=== PATIENT | female | born 1955 | race Caucasian/White ===

== ENCOUNTER 2017-02-28 21:44 | Inpatient (IN) | payer BC ==
[~2017-02-28] VITALS: Ht 160 cm; Wt 105.0 kg
[~2017-02-28 21:44] MED LIST: CYANOCOBALAM1000 MCG PO; EXCEDRIN MIGRA1 EAC3 PO; GLUCOSAMINE &1 EAC1 PO; PROTONIX40 MG PO; RANITIDINE HCL300 MG PO; TYLENOL EXTRA500 MG PO; VITAMIN D31000 UNIT PO; WELLBUTRIN100 MG PO; WOMEN'S 50 PLU1 EACH PO
[2017-03-01 09:28] VITALS: BP 131/75
[2017-03-01 10:17] LABS: POINT-OF-CARE METER ID UU14174212
[2017-03-01] MEDS ORDERED: XYLOCAINE VISC100 ML PO (11:10)
[2017-03-01 13:30] VITALS: BP 150/74
[2017-03-01 14:04] LABS: POINT-OF-CARE METER ID UU14162508
[2017-03-01 15:55] VITALS: BP 150/85
[2017-03-01 17:26] LABS: POINT-OF-CARE METER ID UU14162508
[2017-03-01 18:55] VITALS: BP 139/89
[2017-03-01 23:13] VITALS: BP 134/75
[2017-03-02 00:06] LABS: POINT-OF-CARE METER ID UU14314084
[2017-03-02 03:30] VITALS: BP 128/81
[2017-03-02 05:50] LABS: MCH 30.5 PG (29.0-34.0); MCHC 32.4 G/DL (30.0-36.0); MCV 94.1 FL (83-99); MEAN PLAT.VOLUME 11.1 uM^3 (9.5-12.4); PLATELET COUNT 265 K/uL (156-360); RBC DIS.WIDTH-CV 12.2 % (11.8-14.6); RBC DIS.WIDTH-SD 42.8 % (39-53); RED BLOOD COUNT 3.93 M/uL (3.80-5.20); WHITE BLOOD COUNT 9.2 K/uL (4.1-10.2)
[2017-03-02 06:03] LABS: POINT-OF-CARE METER ID UU14208750
[2017-03-02 06:21] LABS: ANION GAP 7 MEQ/L (2-14); CHLORIDE 102 MEQ/L (99-109); GFR ESTIMATE (CALCULATED) > 59 mL/min/; GLUCOSE 100 mg/dL (70-99); MAGNESIUM 1.8 mg/dl (1.3-2.7); POTASSIUM 4.2 MEQ/L (3.7-5.4); SAMPLE HEMOLYSIS CHECK 0; SAMPLE ICTERIC CHECK 0; SAMPLE LIPEMIA CHECK 0; SODIUM 138 MEQ/L (136-147); UREA NITROGEN (BUN) 11 mg/dL (9-23)
[2017-03-02 07:20] VITALS: BP 136/65
[2017-03-02 11:32] VITALS: BP 129/70
[2017-03-02 12:07] LABS: POINT-OF-CARE METER ID UU14162508
== END 2017-03-02 14:58 | disposition home or self-care (01) | DRG 621 ==
LOC: ENRESERV 21:44 → 2SOUTH 03-01 08:53 → ENRESERV 03-01 13:12 → 2EAST 03-01 13:23 → 2SOUTH 03-01 13:43 → 2EAST 03-02 14:58
PROVIDERS: Surgery
PROC: 0DB64Z3 Excision of Stomach, Percutaneous Endoscopic Approach, Vertical (ICD-10-PCS; principal; 2017-03-01)
DX: E66.01 Morbid (severe) obesity due to excess calories (principal); Z68.41 Body mass index [BMI] 40.0-44.9, adult; E78.5 Hyperlipidemia, unspecified; K21.9 Gastro-esophageal reflux disease without esophagitis; F41.9 Anxiety disorder, unspecified; K58.9 Irritable bowel syndrome, unspecified; G47.30 Sleep apnea, unspecified; E53.8 Deficiency of other specified B group vitamins; E55.9 Vitamin D deficiency, unspecified
CPT/HCPCS: 80048; 82948; 83735; 84100; 85027; 94799; C9113; J0131; J0330; J0690; J1170; J1644; J1650; J1815; J2250; J2405; J2550; J2765; J3010; J3480; J7120; Q0169; Q0175; S0020